=== PATIENT | female | born 1990 | race Caucasian/White ===

== ENCOUNTER 2017-03-29 23:10 | Emergency (ER) | payer OTHER ==
--- NOTE | 2017-03-30 00:52 | ED NURSING NOTES ---
Clinical Report - Nurses [facility] [place] [address] 03/29/2017 23:12 [id number] Triage time 23:Mar 29 2017. Acuity: LEVEL 3. Chief Complaint: (Saturday started feeling nauseous, couldnt eat, felt drained, emisis x 2, left sided kidney pain). 23:23 03/29/17. SEPSIS SCREEN: Sepsis Screen. Negative (no infection suspected/documented). ERNIE COMA SCORE: [place] Coma Scale: 15- eyes open spontaneously (4); best verbal response- oriented x 4 (5); best motor response- obeys commands (6). --23:23 Althea Brantley R.N. 23:19 03/29/17. BP: 129/81 (regular adult cuff) taken on the left arm, while sitting. HR: 94. RR: 18. O2 saturation: 97%. Temp: 98.1 F (oral). Pain level now: 5/10. --23:23 Althea Brantley R.N. Weight: 74.8 kg stated. Height/Length: 62 inches Per Patient. BMI: 30.2. --23:21 Althea Brantley R.N. Medications Ibuprofen Oral, as needed. Tylenol Oral, as needed. --23:22 Althea Brantley R.N. Allergies No Known Drug Allergy. --23:22 Althea Brantley R.N. History Onset. (Saturday). She has had abdominal pain. She has had moderate left-sided flank pain. PAST MEDICAL HX: The patient has had a hysterectomy. SOCIAL HX: Never smoker. No alcohol use or drug use. No infectious disease exposure. ABUSE ASSESSMENT: No report of abuse. SELF HARM ASSESSMENT: A self harm assessment was performed. The patient answered "no" to the question "Do you have thoughts of harming or killing yourself?" and "Have you recently had thoughts about harming or killing others?". --23:23 Althea Brantley R.N. PROBLEMS: Ureterolithiasis. Anemia. Nephrolithiasis. --23:23 Althea Brantley R.N. ADDITIONAL SURGERIES: Hysterectomy. Lithotripsy. --23:23 Althea Brantley R.N. Interventions ID band on patient. To treatment room. --23:23 Althea Brantley R.N. PHYSICAL ASSESSMENT 23:24 03/29/17. Ambulatory to room. Patient gowned. GENERAL / NEURO / PSYCH: Alert. Oriented X 4. Appears in no acute distress. HEENT: Mucous membranes are pink. RESPIRATORY: Respirations not labored. Breath sounds within normal limits. CVS: Normal heart rate and rhythm. Capillary refill less than 2 seconds. GI / : Abdomen soft and nontender. Abdominal tenderness in the left upper quadrant. Guarding present in the left upper quadrant. Bowel sounds within normal limits. No vaginal bleeding. No vaginal discharge. No genital lesions noted. SKIN: Skin is warm and dry. --23:24 Althea Brantley R.N. NURSING PROGRESS NOTES 23:24 03/29/17. The plan of care for this patient has been created. Monitoring of patient in place. Patient gowned. Head of bed elevated. Reassurance given. Two patient identifiers checked. Call light placed in reach. Side rails up x 1. Bed placed in lowest position. Brakes of bed on. Patient ready for evaluation- chart flagged and ED physician notified. --23:24 Althea Brantley R.N. 23:32 03/29/2017 Site #1 started via IV in the right antecubital space with an 20g angiocath, with aseptic technique and good blood return; one attempt. Blood drawn: rainbow set. Labeled in the presence of the patient and sent to the lab. Saline lock flushed with 10 mL saline. --23:47 Althea Brantley R.N. 23:47 03/29/2017 Started bag #1 1000 mL IV Fluids IV NS (Saline); bolus of 1000 mL over 1 hour(s) then at 1000 mL/hr over 1 hour(s) via site #1 via dial-a-flow. Allergies verified and confirmed 5 rights. IV patency established. IV site checked: no pain, redness, or swelling. IV flushed thoroughly pre- and post-medication administration. --23:47 Althea Brantley R.N. 23:53 03/29/2017 Zofran (Ondansetron HCl) IVP 4 mg given over 1 minute(s) via site #1. Allergies verified and confirmed 5 rights. IV patency established. IV site checked: no pain, redness, or swelling. IV flushed thoroughly pre- and post-medication administration. IVP given by RN. --23:53 Althea Brantley R.N. 23:56 03/29/2017 Morphine IVP 2 mg given over 2 minute(s) via site #1. Allergies verified, confirmed 5 rights and sedative warning given to the patient. IV patency established. IV site checked: no pain, redness, or swelling. IV flushed thoroughly pre- and post-medication administration. IVP given by RN. --23:56 Althea Brantley R.N. 23:50 03/29/17. BP: 109/71 (regular adult cuff) taken on the left arm, while sitting. HR: 80. RR: 18. O2 saturation: 98% on room air. Pain level now: 02/06. --00:01 Althea Brantley R.N. 00:03/30/17. BP: 113/77 (regular adult cuff) taken on the left arm, while sitting. HR: 80. RR: 18. O2 saturation: 98% on room air. Pain level now: 01/07. --00:02 Althea Brantley R.N. 00:02 03/30/17. ( Mother at patients bedside, patient given warm blanket for comfort). --00:02 Althea Brantley R.N. 00:13 03/30/17. BP: 104/66 (regular adult cuff) taken on the left arm, while sitting. HR: 91. RR: 16. O2 saturation: 96% on room air. Pain level now: 12/07. --00:14 Althea Brantley R.N. 00:14 03/30/17. --00:14 Althea rBantley R.N. 00:17 03/30/2017 Morphine IVP Response: no adverse reaction pain is improving. Symptoms have improved the patient feels better. --00:17 Althea Brantley R.N. 00:54 03/30/2017 Keflex (Cephalexin) PO Capsules 500 mg given. Allergies verified and confirmed 5 rights. --00:55 Althea Brantley R.N. 01:02 03/30/2017 IV Fluids IV NS Discontinued: bag #1 completed. Total amount infused: 1000 mL. IV patency established. IV site checked: no pain, redness, or swelling. IV flushed thoroughly. --01:07 Althea Brantley R.N. DISPOSITION / DISCHARGE 00:59 03/30/2017 Site #1 removed upon discharge. Bandaid applied. --01:04 Althea Brantley R.N. 01:04 03/30/17. Condition at departure: improved. No learning barriers present. Discharge instructions provided and reviewed with the patient. Reviewed medication(s) side effects, precautions, dosing and course information. Prescription(s) given to the patient. Patient verbalized understanding. Written instructions provided in Persian. The patient was discharged by the physician. She was discharged home and accompanied by parent. She left the Emergency Department ambulatory and via private vehicle. Parent driving. --01:04 Althea Brantley R.N. 00:55 03/30/17. BP: 100/71 (regular adult cuff) taken on the left arm, while sitting. HR: 74. RR: 16. O2 saturation: 99% on room air. Temp: 97.7 F (oral). Pain level now: 10/09. --01:04 Althea Brantley R.N. Departure time: 01:Mar 30 2017. --01:06 Althea Brantley R.N. Locked/Released at 03/30/2017 2:53 by Althea Brantley R.N.
--- NOTE | 2017-03-30 00:52 | ED CLINICAL REPORT ---
Clinical Report - Physicians/Mid Levels [facility] [address] [place] [address] 03/29/2017 23:12 Patient: GENTRY JETER Time Seen: 2321; initial patient contact. Arrived- By private vehicle. Historian- patient. HISTORY OF PRESENT ILLNESS Chief Complaint: urinary frequency. This started past 2 days and still present. It was gradual in onset and has been intermittent but is not gone now. The symptoms are described as moderate. Modifying factors. Not worsened by anything. Not relieved by anything. The patient has had moderate, constant abdominal pain (left flank today). No low back pain, abnormal bleeding, vaginal discharge, genital lesions or pain with urination. No hematuria. She has had urgency of urination. (+malaise. reports hx of kidney stones. states it might feel similar.). Similar symptoms previously: None. Recent medical care: Not recently seen/assessed. REVIEW OF SYSTEMS No skin rash. All systems otherwise negative, except as recorded above. PAST HISTORY See nurses notes. SOCIAL HISTORY Never smoker. No alcohol use or drug use. No recent travel. Is a local resident. ADDITIONAL NOTES The nursing notes have been reviewed. PHYSICAL EXAM Vital Signs: 03/29/2017 23:19 BP: 129/81. HR: 94. RR: 18. O2 saturation: 97%. Temp: 98.1 F. Pain level now: 5/10. Blood pressure normal. Oxygen saturation normal. Appearance: Alert. Oriented X3. No acute distress. CVS: Heart sounds normal. Respiratory: No respiratory distress. Breath sounds normal. Chest nontender. Abdomen: Soft and nontender. Bowel sounds normal. (left CVA tenderness). Skin: Skin warm and dry. Normal skin color. No rash. Normal skin turgor. Extremities: Extremities nontender. No lower extremity edema. LABS, X-RAYS, AND EKG Laboratory Tests: UA-Culture if indicated: (TASH: 03/29/2017 23:35) ( MsgRcvd 03/29/2017 23:58) Final results Test Result Flag Units (Reference) URINE COLOR YELLOW URINE APPEARANCE CLEAR URINE GLUCOSE NEGATIVE (NEGATIVE) URINE BILIRUBIN NEGATIVE (NEGATIVE) URINE KETONE 1+ (NEGATIVE) URINE SPECIFIC GRAVITY >= 1.030 (1.010-1.030) URINE PH 6.0 (5.0-8.0) URINE PROTEIN TRACE (NEGATIVE) URINE UROBILINOGEN 1.0 EU/dL (0.2-1.0) URINE NITRITE NEGATIVE (NEGATIVE) URINE BLOOD NEGATIVE (NEGATIVE) URINE LEUK ESTERASE NEGATIVE (NEGATIVE) URINE RBC 0-1 rbc/hpf (0-1) URINE WBC 0-1 wbc/hpf (0-1) URINE EPITHELIAL CELLS 3-5 EPI/hpf (0-5) URINE BACTERIA TRACE (<1+) (NONE SEEN) URINE COMMENT CULT NOT INDICATED URINE CULTURES ARE SET-UP BASED ON THE FOLLOWING CRITERIA:POSITIVE NITRITEPOSITIVE LEUKOCYTE ESTERASEGREATER THAN 10 WHITE BLOOD CELLSMODERATE (2+) OR GREATER BACTERIA Urine: (TASH: 03/29/2017 23:35) ( [facility] 03/29/2017 23:51) Final results Test Result Flag Units (Reference) URINE NEGATIVE CBC w Diff: (TASH: 03/29/2017 23:25) ( [facility] 03/29/2017 23:52) Final results Test Result Flag Units (Reference) WHITE BLOOD COUNT 6.3 K/uL (4.5-11.5) RED BLOOD COUNT 4.58 M/uL (4.00-5.20) HEMOGLOBIN 13.2 gm/dL (12.0-16.0) HEMATOCRIT 39.5 % (36.0-46.0) MEAN CELL VOLUME 86 fL (80-100) MEAN CORPUSCULAR HGB 29 pg (26-34) MEAN CORPUSCULAR HGB CONC 33 g/dL (31-37) RED CELL DISTRIBUTION WIDTH 12.5 % (11.6-14.8) PLATELET COUNT 307 K/uL (150-400) LYMPH % 48.3 H % (25-40) MONO % 10.8 % (3-14) GRANULOCYTE % 40.9 L % (53-90) CMP: (TASH: 03/29/2017 23:25) ( MsgRcvd 03/29/2017 23:56) Final results Test Result Flag Units (Reference) GLUCOSE 92 mg/dL (70-110) BUN 15 mg/dL (7-18) CREATININE 0.9 mg/dL (0.6-1.3) Estimated GFR >60 mL/min Estimated GFR- >60 mL/min Note: Persistent reduction over 3 months in eGFR<60 mL/min/1.73 m2 defines CKD. Patients with eGFR values>=60 mL/min/1.73 m2 may also have CKD if evidence ofpersistent proteinuria. Additional information may be foundat www.kidney.org. SODIUM 139 mmol/L (136-145) POTASSIUM 3.9 mmol/L (3.5-5.1) CHLORIDE 103 mmol/L (98-107) CARBON DIOXIDE 28 mmol/L (21-32) CALCIUM 8.7 mg/dL (8.5-10.1) TOTAL PROTEIN 7.4 g/dL (6.4-8.2) ALBUMIN 3.8 g/dL (3.3-5.0) BILIRUBIN, TOTAL 0.5 mg/dL (0.0-1.0) ALKALINE PHOSPHATASE 84 U/L (46-116) AST (SGOT) 19 U/L (15-37) ALT (SGPT) 28 U/L (12-78) LIPASE 81 U/L (73-393) . PROGRESS AND PROCEDURES Course of Care: The patient is a 26-year-old female presenting for evaluation of left-sided flank pain as well as urinary symptoms. At this time differential diagnosis includes urinary tract infection versus ectopic versus renal colic. Patient is agreeable to the treatment plan. Pain medication and fluids as well as nausea medication been ordered. Patient is nontoxic and is in no acute distress. The patient's workup was remarkable for the findings above. No significant urinary tract infection found on patient's urinalysis. I discussion with the patient in regards to CT scans for further evaluation of patient's symptoms. After having a long discussion with the pros and cons of ordering a CT scan, patient declines CT scan and is agreeable to antibiotics. Patient is noted to have urinary tract symptoms. In females with symptoms of urinary tract infection, benefits for and about a treatment outweigh the risks. Patient will be treated with antibiotics. Patient is agreeable to the treatment plan. Discussed with the patient workup here in the emergency department including diagnosis, home care, follow-up, and return precautions. All questions have been answered. The patient expressed understanding of these instructions and was agreeable to them. Prior to patient's departure from the emergency department she is noted to be resting in bed and in no acute distress. Patient continues to be nontoxic. Repeat abdominal exam continues to be benign. Disposition: Discharged. Condition: good. CLINICAL IMPRESSION Acute abdominal pain. (left flank). 03/29/2017 23:19 BP: 129/81. HR: 94. RR: 18. O2 saturation: 97%. Temp: 98.1 F. Pain level now: 5/10. Blood pressure normal. Oxygen saturation normal. Acute urinary tract infection. INSTRUCTIONS Warnings: SEDATIVE MEDICATION: You were given sedative medication during your visit. Do not drive or operate dangerous machinery. CONTROLLED SUBSTANCE WARNINGS. GENERAL WARNINGS: Return or contact your physician immediately if your condition worsens or changes unexpectedly, if not improving as expected, or if other problems arise. Specifically return if pain, vomiting, bleeding, breathing difficulty or fever. Your Current Medications: CONTINUE TAKING THE FOLLOWING MEDICATIONS: Ibuprofen Oral : prn. Tylenol Oral : prn. Prescription Medications: Zofran (orally disintegrating tablets) 4 mg: take 1 orally every 8 hours as needed for nausea and vomiting. Dispense ten (10). No refill. Substitution is permissible. [employer] 5 mg / 325 mg tablets: take 1 orally every 6 hours as needed for pain. Dispense twelve (12). No refill. Substitution is permissible. Cephalexin 500 mg: take 1 capsule orally every 8 hours for 7 days. No refill. (disp 21 caps) Follow-up: Return to the emergency department as needed. Follow up with your doctor in three days. Reason for referral: recheck today's concerns. Summary of care provided to patient via paper. Screening today revealed the patient's blood pressure to be in the normal range. The patient should follow up with a primary care provider for blood pressure management. Understanding of the discharge instructions verbalized by patient. (Electronically signed by Geoff Meyers Dr. 03/30/2017 7:11)
--- NOTE | 2017-03-30 00:52 | ED ORDER SUMMARY ---
..... Patient: GENTRY JETER OrderSheet [facility] VisitID: [id number] [place] [address] 26y, F Registration Date/Time: 03/29/2017 ORDER SHEET Weight: 74.8 kg (stated) Allergies: No Known Drug Allergy GENERAL ORDERS: UA-Culture if indicated Urgent (23:21 03/29/2017 Laura Altamirano) (Ack 23:23 AMcQuoid ER Tech1) (23:41 JSanders R.N.) Urine Urgent (23:21 03/29/2017 Laura Altamirano) (Ack 23:23 AMcQuoid ER Tech1) (23:41 JSanders R.N.) CBC w Diff Urgent (23:39 03/29/2017 Laura Altamirano) (Ack 23:40 AMcQuoid ER Tech1) (23:41 JSanders R.N.) CMP Urgent (23:39 03/29/2017 Laura Altamirano) (Ack 23:40 AMcQuoid ER Tech1) (23:41 JSanders R.N.) Lipase Urgent (23:39 03/29/2017 Laura Altamirano) (Ack 23:40 AMcQuoid ER Tech1) (23:41 JSanders R.N.) Pulse oximeter (23:39 03/29/2017 Laura Altamirano) (Ack 23:40 AMcQuoid ER Tech1) (23:41 JSanders R.N.) MEDICATION ORDERS: Keflex PO 500 mg (NOW) (00:48 03/30/2017 Laura Altamirano) (Ack 0:51 JSanders R.N.) (0:54 JSanders R.N.) IV FLUIDS: IV NS : initial bolus 1000 mL (1000 mL/hr), then none - for X1 (NOW) (23:37 03/29/2017 Laura Altamirano) (23:47 JSanders R.N.) Zofran IV 4 mg (NOW) (23:39 03/29/2017 Laura Altamirano) (23:53 JSanders R.N.) Morphine IV 2 mg (once now. may repeat in 15 minutes for pain > 5/10) (23:40 03/29/2017 Laura Altamirano) (23:56 Cassy Hui) ORDER SHEET NOTES: [Electronically signed by Althea Brantley R.N. (02:53 03/30/2017)] [Electronically signed by Geoff Meyers Dr. (07:11 03/30/2017)] [Electronically locked/signed by Althea Brantley R.N. (02:53 03/30/2017)]
--- NOTE | 2017-03-30 00:52 | ED ORDER SUMMARY ---
..... Patient: GENTRY JETER OrderSheet [facility] VisitID: [id number] [place] [address] 26y, F Registration Date/Time: 03/29/2017 ORDER SHEET Weight: 74.8 kg (stated) Allergies: No Known Drug Allergy GENERAL ORDERS: UA-Culture if indicated Urgent (23:21 03/29/2017 Laura Altamirano) (Ack 23:23 AMcQuoid ER Tech1) (23:41 JSanders R.N.) Urine Urgent (23:21 03/29/2017 Laura Altamirano) (Ack 23:23 AMcQuoid ER Tech1) (23:41 JSanders R.N.) CBC w Diff Urgent (23:39 03/29/2017 Laura Altamirano) (Ack 23:40 AMcQuoid ER Tech1) (23:41 JSanders R.N.) CMP Urgent (23:39 03/29/2017 Laura Altamirano) (Ack 23:40 AMcQuoid ER Tech1) (23:41 JSanders R.N.) Lipase Urgent (23:39 03/29/2017 Laura Altamirano) (Ack 23:40 AMcQuoid ER Tech1) (23:41 JSanders R.N.) Pulse oximeter (23:39 03/29/2017 Laura Altamirano) (Ack 23:40 AMcQuoid ER Tech1) (23:41 JSanders R.N.) MEDICATION ORDERS: Keflex PO 500 mg (NOW) (00:48 03/30/2017 Laura Altamirano) (Ack 0:51 JSanders R.N.) (0:54 JSanders R.N.) IV FLUIDS: IV NS : initial bolus 1000 mL (1000 mL/hr), then none - for X1 (NOW) (23:37 03/29/2017 Laura Altamirano) (23:47 JSanders R.N.) Zofran IV 4 mg (NOW) (23:39 03/29/2017 Laura Altamirano) (23:53 JSanders R.N.) Morphine IV 2 mg (once now. may repeat in 15 minutes for pain > 5/10) (23:40 03/29/2017 Laura Altamirano) (23:56 Cassy Hui) ORDER SHEET NOTES: [Electronically signed by Althea Brantley R.N. (02:53 03/30/2017)] [Electronically signed by Geoff Meyers Dr. (07:11 03/30/2017)] [Electronically locked/signed by Althea Brantley R.N. (02:53 03/30/2017)]
--- NOTE | 2017-03-30 07:11 | ED DISCHARGE INSTRUCTIONS ---
Patient: GENTRY JETER General Instructions [facility] VisitID: [id number] [place] [address] 26y, F Registration Date/Time: 03/29/2017 Acute abdominal pain. (left flank). 03/29/2017 23:19 BP: 129/81. HR: 94. RR: 18. O2 saturation: 97%. Temp: 98.1 F. Pain level now: 5/10. Blood pressure normal. Oxygen saturation normal. Acute urinary tract infection. INSTRUCTIONS Warnings: SEDATIVE MEDICATION: You were given sedative medication during your visit. Do not drive or operate dangerous machinery. CONTROLLED SUBSTANCE WARNINGS. GENERAL WARNINGS: Return or contact your physician immediately if your condition worsens or changes unexpectedly, if not improving as expected, or if other problems arise. Specifically return if pain, vomiting, bleeding, breathing difficulty or fever. Your Current Medications: CONTINUE TAKING THE FOLLOWING MEDICATIONS: Ibuprofen Oral : prn. Tylenol Oral : prn. Prescription Medications: Zofran (orally disintegrating tablets) 4 mg: take 1 orally every 8 hours as needed for nausea and vomiting. Dispense ten (10). No refill. Substitution is permissible. Bivins 5 mg / 325 mg tablets: take 1 orally every 6 hours as needed for pain. Dispense twelve (12). No refill. Substitution is permissible. Cephalexin 500 mg: take 1 capsule orally every 8 hours for 7 days. No refill. (disp 21 caps) Follow-up: Return to the emergency department as needed. Follow up with your doctor in three days. Reason for referral: recheck today's concerns. Summary of care provided to patient via paper. Screening today revealed the patient's blood pressure to be in the normal range. The patient should follow up with a primary care provider for blood pressure management. Understanding of the discharge instructions verbalized by patient. ADDITIONAL INFORMATION Abdominal Pain, Unknown Cause (Female) The exact cause of your abdominal (stomach) pain is not certain. This does not mean that this is something to worry about, or the right tests were not done. Everyone likes to know the exact cause of the problem, but sometimes with abdominal pain, there is no clear-cut cause, and this could be a good thing. The good news is that your symptoms can be treated, and you will feel better. Your condition does not seem serious now; however, sometimes the signs of a serious problem may take more time to appear. For this reason,it is important for you to watch for any new symptoms, problems,or worsening of your condition. Over the next few days, the abdominal pain may come and go, or be continuous. Other common symptoms can include nausea and vomiting. Sometimes it can be difficult to tell if you feel nauseous, you may just feel bad and not associate that feeling with nausea. Constipation, diarrhea, and a fever may go along with the pain. The pain may continue even if treated correctly over the following days. Depending on how things go, sometimes the cause can become clear and may require further or different treatment. Additional evaluations, medications, or tests may be needed. Home care Your health care provider may prescribe medications for pain, symptoms, or an infection. Follow the health care provider's instructions for taking these medications. General care Rest until your next exam. No strenuous activities. Try to find positions that ease discomfort. A small pillow placed on the abdomen may help relieve pain. Something warm on your abdomen (such as a heating pad) may help, but be careful not to burn yourself. Diet Do not force yourself to eat, especially if having cramps, vomiting, or diarrhea. Water is important so you do not get dehydrated. Soup may also be good. Sports drinks may also help, especially if they are not too acidic. Make sure you don't drink sugary drinks as this can make things worse. Take liquids in small amounts. Do not guzzle them. Caffeine sometimes makes the pain and cramping worse. Avoid dairy products if you have vomiting or diarrhea. Don't eat large amounts at a time. Wait a few minutes between bites. Eat a diet low in fiber (called a low-residue diet). Foods allowed include refined breads, white rice, fruit and vegetable juices without pulp, tender meats. These foods will pass more easily through the intestine. Avoid whole-grain foods, whole fruits and vegetables, meats, seeds and nuts, fried or fatty foods, dairy, alcohol and spicy foods until your symptoms go away. Follow-up care Follow up with your health care provider as instructed, or if your pain does not begin to improve in the next 24 hours. When to seek medical care Seek prompt medical care if any of the following occur: Pain gets worse or moves to the right lower abdomen New or worsening vomiting or diarrhea Swelling of the abdomen Unable to pass stool for more than three days Fever of 100.4F (38C) or higher, or as directed by your healthcare provider. Blood in vomit or bowel movements (dark red or black color) Jaundice (yellow color of eyes and skin) Weakness, dizziness Chest, arm, back, neck or jaw pain Unexpected vaginal bleeding or missed period Call 911 Call emergency services if any of the following occur: Trouble breathing Confusion Fainting or loss of consciousness Rapid heart rate Seizure Bladder Infection,Female (Adult) A bladder infection ("cystitis" or "UTI") usually causes a constant urge to urinate and a burning when passing urine. Urine may be cloudy, smelly or dark. There may be pain in the lower abdomen. A bladder infection occurs when bacteria from the vaginal area enter the bladder opening (urethra). This can occur from sexual intercourse, wearing tight clothing, dehydration and other factors. Home Care: Drink lots of fluids (at least 6-8 glasses a day, unless you must restrict fluids for other medical reasons). This will force the medicine into your urinary system and flush the bacteria out of your body. Avoid sexual intercourse until your symptoms are gone. Avoid caffeine, alcohol and spicy foods. These can irritate the bladder. A bladder infection is treated with antibiotics. You may also be given Pyridium (generic = phenazopyridine) to reduce the burning sensation. This medicine will cause your urine to become a bright orange color. The orange urine may stain clothing. You may wear a pad or panty-liner to protect clothing. Preventing Future Infections: Always wipe from front to back after a bowel movement. Keep the genital area clean and dry. Drink plenty of fluids each day to avoid dehydration. Both sexual partners should wash before intercourse. Urinate right after intercourse to flush out the bladder. Wear cotton underwear and cotton-lined panty hose; avoid tight-fitting pants. If you are on control pills and are having frequent bladder infections, discuss with your doctor. Follow Up: Return to this facility or see your doctor if ALL symptoms are not gone after three days of treatment. Get Prompt Medical Attention if any of the following occur: Fever of 100.4F (38C) or higher, or as directed by your healthcare provider No improvement by the third day of treatment Increasing back or abdominal pain Repeated vomiting; unable to keep medicine down Weakness, dizziness or fainting Vaginal discharge Pain, redness or swelling in the labia (outer vaginal area) Ondansetron Oral disintegrating tablet What is this medicine? ONDANSETRON (on RA se adriana) is used to treat nausea and vomiting caused by chemotherapy. It is also used to prevent or treat nausea and vomiting after surgery. How should I use this medicine? These tablets are made to dissolve in the mouth. Do not try to push the tablet through the foil backing. With dry hands, peel away the foil backing and gently remove the tablet. Place the tablet in the mouth and allow it to dissolve, then swallow. While you may take these tablets with water, it is not necessary to do so. Talk to your slot technician regarding the use of this medicine in children. Special care may be needed. What side effects may I notice from receiving this medicine? Side effects that you should report to your doctor or health social worker palliative care as soon as possible: allergic reactions like skin rash, itching or hives, swelling of the face, lips, or tongue breathing problems dizziness fast or irregular heartbeat feeling faint or lightheaded, falls fever and chills swelling of the hands and feet tightness in the chest Side effects that usually do not require medical attention (report to your doctor or health social worker palliative care if they continue or are bothersome): constipation or diarrhea headache What may interact with this medicine? Do not take this medicine with any of the following medications: -apomorphine -cisapride -dofetilide -dronedarone -pimozide -thioridazine -ziprasidone This medicine may also interact with the following medications: -carbamazepine -phenytoin -rifampicin -tramadol -other medicines that prolong the QT interval (cause an abnormal heart rhythm) What if I miss a dose? If you miss a dose, take it as soon as you can. If it is almost time for your next dose, take only that dose. Do not take double or extra doses. Where should I keep my medicine? Keep out of the reach of children. Store between 2 and 30 degrees C (36 and 86 degrees F). Throw away any unused medicine after the expiration date. What should I tell my health care provider before I take this medicine? They need to know if you have any of these conditions: heart disease history of irregular heartbeat liver disease low levels of magnesium or potassium in the blood an unusual or allergic reaction to ondansetron, granisetron, other medicines, foods, dyes, or preservatives or trying to get breast-feeding What should I watch for while using this medicine? Check with your doctor or health social worker palliative care as soon as you can if you have any sign of an allergic reaction. Hydrocodone Bitartrate, Acetaminophen Oral tablet What is this medicine? ACETAMINOPHEN; HYDROCODONE (a set a DIOMEDES mone fen; shelbi droe KOE done) is a pain reliever. It is used to treat mild to moderate pain. How should I use this medicine? Take this medicine by mouth. Swallow it with a full glass of water. Follow the directions on the prescription label. If the medicine upsets your stomach, take the medicine with food or milk. Do not take more than you are told to take. Talk to your slot technician regarding the use of this medicine in children. This medicine is not approved for use in children. What side effects may I notice from receiving this medicine? Side effects that you should report to your doctor or health social worker palliative care as soon as possible: allergic reactions like skin rash, itching or hives, swelling of the face, lips, or tongue breathing problems confusion feeling faint or lightheaded, falls stomach pain yellowing of the eyes or skin Side effects that usually do not require medical attention (report to your doctor or health social worker palliative care if they continue or are bothersome): nausea, vomiting stomach upset What may interact with this medicine? alcohol antihistamines isoniazid medicines for depression, anxiety, or psychotic disturbances medicines for sleep muscle relaxants naltrexone narcotic medicines (opiates) for pain phenobarbital ritonavir tramadol What if I miss a dose? If you miss a dose, take it as soon as you can. If it is almost time for your next dose, take only that dose. Do not take double or extra doses. Where should I keep my medicine? Keep out of the reach of children. This medicine can be abused. Keep your medicine in a safe place to protect it from theft. Do not share this medicine with anyone. Selling or giving away this medicine is dangerous and against the law. Store at room temperature between 15 and 30 degrees C (59 and 86 degrees F). Protect from light. Keep container tightly closed. Throw away any unused medicine after the expiration date. Discard unused medicine and used packaging carefully. Pets and children can be harmed if they find used or lost packages. What should I tell my health care provider before I take this medicine? They need to know if you have any of these conditions: brain tumor Crohn's disease, inflammatory bowel disease, or ulcerative colitis drink more than 3 alcohol-containing drinks per day drug abuse or addiction head injury heart or circulation problems kidney disease or problems going to the bathroom liver disease lung disease, asthma, or breathing problems an unusual or allergic reaction to acetaminophen, hydrocodone, other opioid analgesics, other medicines, foods, dyes, or preservatives or trying to get breast-feeding What should I watch for while using this medicine? Tell your doctor or health social worker palliative care if your pain does not go away, if it gets worse, or if you have new or a different type of pain. You may develop tolerance to the medicine. Tolerance means that you will need a higher dose of the medicine for pain relief. Tolerance is normal and is expected if you take the medicine for a long time. Do not suddenly stop taking your medicine because you may develop a severe reaction. Your body becomes used to the medicine. This does NOT mean you are addicted. Addiction is a behavior related to getting and using a drug for a non-medical reason. If you have pain, you have a medical reason to take pain medicine. Your doctor will tell you how much medicine to take. If your doctor wants you to stop the medicine, the dose will be slowly lowered over time to avoid any side effects. You may get drowsy or dizzy when you first start taking the medicine or change doses. Do not drive, use machinery, or do anything that may be dangerous until you know how the medicine affects you. Stand or sit up slowly. There are different types of narcotic medicines (opiates) for pain. If you take more than one type at the same time, you may have more side effects. Give your health care provider a list of all medicines you use. Your doctor will tell you how much medicine to take. Do not take more medicine than directed. Call emergency for help if you have problems breathing. The medicine will cause constipation. Try to have a bowel movement at least every 2 to 3 days. If you do not have a bowel movement for 3 days, call your doctor or health social worker palliative care. Too much acetaminophen can be very dangerous. Do not take Tylenol (acetaminophen) or medicines that contain acetaminophen with this medicine. Many non-prescription medicines contain acetaminophen. Always read the labels carefully. Cephalexin Monohydrate Oral tablet What is this medicine? CEPHALEXIN (sef a SRINIVAS in) is a cephalosporin antibiotic. It is used to treat certain kinds of bacterial infections It will not work for colds, flu, or other viral infections. How should I use this medicine? Take this medicine by mouth with a full glass of water. Follow the directions on the prescription label. This medicine can be taken with or without food. Take your medicine at regular intervals. Do not take your medicine more often than directed. Take all of your medicine as directed even if you think you are better. Do not skip doses or stop your medicine early. Talk to your slot technician regarding the use of this medicine in children. While this drug may be prescribed for selected conditions, precautions do apply. What side effects may I notice from receiving this medicine? Side effects that you should report to your doctor or health social worker palliative care as soon as possible: allergic reactions like skin rash, itching or hives, swelling of the face, lips, or tongue breathing problems pain or trouble passing urine redness, blistering, peeling or loosening of the skin, including inside the mouth severe or watery diarrhea unusually weak or tired yellowing of the eyes, skin Side effects that usually do not require medical attention (report to your doctor or health social worker palliative care if they continue or are bothersome): gas or heartburn genital or anal irritation headache joint or muscle pain nausea, vomiting What may interact with this medicine? probenecid some other antibiotics What if I miss a dose? If you miss a dose, take it as soon as you can. If it is almost time for your next dose, take only that dose. Do not take double or extra doses. There should be at least 4 to 6 hours between doses. Where should I keep my medicine? Keep out of the reach of children. Store at room temperature between 59 and 86 degrees F (15 and 30 degrees C). Throw away any unused medicine after the expiration date. What should I tell my health care provider before I take this medicine? They need to know if you have any of these conditions: kidney disease stomach or intestine problems, especially colitis an unusual or allergic reaction to cephalexin, other cephalosporins, penicillins, other antibiotics, medicines, foods, dyes or preservatives or trying to get breast-feeding What should I watch for while using this medicine? Tell your doctor or health social worker palliative care if your symptoms do not begin to improve in a few days. Do not treat diarrhea with over the counter products. Contact your doctor if you have diarrhea that lasts more than 2 days or if it is severe and watery. If you have diabetes, you may get a false-positive result for sugar in your urine. Check with your doctor or health social worker palliative care. You have been given the following additional information: Abdominal Pain, Unknown Cause, (Female) Bladder Infection, Female (Adult) Ondansetron Oral disintegrating tablet Hydrocodone Bitartrate, Acetaminophen Oral tablet Cephalexin Monohydrate Oral tablet (Electronically signed by Geoff Meyers Dr. 03/30/2017 7:11)
--- NOTE | 2017-03-30 07:11 | ED MED RECONCILIATION SUMMARY ---
Patient: GENTRY JETER Medication Reconciliation Report [facility] VisitID: [id number] [place] [address] 26y, F Registration Date/Time: 03/29/2017 Weight: 74.8 kg Height/Length: 62 in. BMI: 30.2 ALLERGIES: No Known Drug Allergy The patient's Home Medications are listed below: CONTINUE TAKING THE FOLLOWING MEDICATIONS: Ibuprofen Oral Tylenol Oral The source(s) of the original Home Medication information: Not obtained. The following Medications were given to the patient in the Emergency Department: IV NS IV Fluids bolus 1000 mL over 1 hour(s), then 1000 mL/hr, administered: 03/29/2017 11:47:00 PM Zofran [IVP] IVP 4 mg, administered: 03/29/2017 11:53:00 PM Morphine [IVP] IVP 2 mg, administered: 03/29/2017 11:56:00 PM Keflex [PO] PO 500 mg, administered: 03/30/2017 12:54:00 AM The following Medications were prescribed to the patient: Zofran (orally disintegrating tablets) 4 mg: take 1 orally every 8 hours as needed for nausea and vomiting. Dispense ten (10). No refill. Substitution is permissible. -- Geoff Meyers Dr. [place] 5 mg / 325 mg tablets: take 1 orally every 6 hours as needed for pain. Dispense twelve (12). No refill. Substitution is permissible. -- Geoff Meyers Dr. Cephalexin 500 mg: take 1 capsule orally every 8 hours for 7 days. No refill.(disp 21 caps) -- Geoff Meyers Dr.
--- NOTE | 2017-03-30 07:11 | ED MAR SUMMARY ---
..... Medication Administration Record [facility] [address] [place] [address] Patient: GENTRY JETER Visit ID: [id number] 26y, F Weight: 74.8 kg Height/Length: 62 in BMI: 30.2 ALLERGIES: No Known Drug Allergy Start 23:47 03/29/2017 Althea Brantley R.N., Stop 01:02 03/30/2017 Althea Brantley R.N. Medication Administered: IV NS (SALINE), Dose: IV Fluids over 1 hour(s), Rate: 1000 mL/hr, Bolus: 1000 mL over 1 hour(s), Dispensed: 1000 mL bag, Site: #1 right AC. Medication Ordered: IV NS : initial bolus 1000 mL (1000 mL/hr), then none - for X1 (NOW). Given 23:53 03/29/2017 Althea Brantley R.N. Medication Administered: ZOFRAN [IVP] (ONDANSETRON HCL), Dose: 4 mg IVP over 1 minute(s), Site: #1 right AC. Medication Ordered: Zofran IV 4 mg (NOW). Given 23:56 03/29/2017 Althea Brantley R.N. Medication Administered: MORPHINE [IVP], Dose: 2 mg IVP over 2 minute(s), Site: #1 right AC. Medication Ordered: Morphine IV 2 mg (once now. may repeat in 15 minutes for pain > 5/10). Given 00:54 03/30/2017 Althea Brantley R.N. Medication Administered: KEFLEX [PO] (CEPHALEXIN), Dose: 500 mg Capsules PO. Medication Ordered: Keflex PO 500 mg (NOW).
--- NOTE | 2017-03-30 07:11 | ED MED RECONCILIATION SUMMARY ---
Patient: GENTRY JETER Medication Reconciliation Report [facility] VisitID: [id number] [place] [address] 26y, F Registration Date/Time: 03/29/2017 Weight: 74.8 kg Height/Length: 62 in. BMI: 30.2 ALLERGIES: No Known Drug Allergy The patient's Home Medications are listed below: CONTINUE TAKING THE FOLLOWING MEDICATIONS: Ibuprofen Oral Tylenol Oral The source(s) of the original Home Medication information: Not obtained. The following Medications were given to the patient in the Emergency Department: IV NS IV Fluids bolus 1000 mL over 1 hour(s), then 1000 mL/hr, administered: 03/29/2017 11:47:00 PM Zofran [IVP] IVP 4 mg, administered: 03/29/2017 11:53:00 PM Morphine [IVP] IVP 2 mg, administered: 03/29/2017 11:56:00 PM Keflex [PO] PO 500 mg, administered: 03/30/2017 12:54:00 AM The following Medications were prescribed to the patient: Zofran (orally disintegrating tablets) 4 mg: take 1 orally every 8 hours as needed for nausea and vomiting. Dispense ten (10). No refill. Substitution is permissible. -- Geoff Meyers Dr. [place] 5 mg / 325 mg tablets: take 1 orally every 6 hours as needed for pain. Dispense twelve (12). No refill. Substitution is permissible. -- Geoff Meyers Dr. Cephalexin 500 mg: take 1 capsule orally every 8 hours for 7 days. No refill.(disp 21 caps) -- Geoff Meyers Dr.
--- NOTE | 2017-03-30 07:11 | ED MAR SUMMARY ---
..... Medication Administration Record [facility] [address] [place] [address] Patient: GENTRY JETER Visit ID: [id number] 26y, F Weight: 74.8 kg Height/Length: 62 in BMI: 30.2 ALLERGIES: No Known Drug Allergy Start 23:47 03/29/2017 Althea Brantley R.N., Stop 01:02 03/30/2017 Althea Brantley R.N. Medication Administered: IV NS (SALINE), Dose: IV Fluids over 1 hour(s), Rate: 1000 mL/hr, Bolus: 1000 mL over 1 hour(s), Dispensed: 1000 mL bag, Site: #1 right AC. Medication Ordered: IV NS : initial bolus 1000 mL (1000 mL/hr), then none - for X1 (NOW). Given 23:53 03/29/2017 Althea Brantley R.N. Medication Administered: ZOFRAN [IVP] (ONDANSETRON HCL), Dose: 4 mg IVP over 1 minute(s), Site: #1 right AC. Medication Ordered: Zofran IV 4 mg (NOW). Given 23:56 03/29/2017 Althea Brantley R.N. Medication Administered: MORPHINE [IVP], Dose: 2 mg IVP over 2 minute(s), Site: #1 right AC. Medication Ordered: Morphine IV 2 mg (once now. may repeat in 15 minutes for pain > 5/10). Given 00:54 03/30/2017 Althea Brantley R.N. Medication Administered: KEFLEX [PO] (CEPHALEXIN), Dose: 500 mg Capsules PO. Medication Ordered: Keflex PO 500 mg (NOW).
== END 2017-03-30 01:06 | disposition home or self-care (01) ==
LOC: ED SRH 23:10
DX: N39.0 Urinary tract infection, site not specified (principal); B96.89 Other specified bacterial agents as the cause of diseases classified elsewhere; R10.9 Unspecified abdominal pain
CPT/HCPCS: 90004; 90100; 92235; 93070; 95059